=== PATIENT | female | born 1950 | race Caucasian/White ===

== ENCOUNTER → 2023-11-19 10:28 | Outpatient (CLI) | payer MEDICARE, OTHER, SELFPAY ==
--- NOTE | 2023-11-19 10:32 | DI.RAD.S_ITS ---
PROCEDURE: XR FOOT LT MIN 3V INDICATIONS: WEIGHT BEARING TECHNIQUE: 3 views of the foot were acquired. COMPARISON: [facility], , FOOT 3V LEFT, 01/29/2012, 14:07. FINDINGS: Bones: No acute fractures or dislocations. Old healed 5th metatarsal shaft fracture. Normal alignment with weight-bearing. No suspicious bony lesions. Moderate osteoarthritic changes, most pronounced at the 2nd, 3rd, 4th and 5th tarsometatarsal joints and multiple distal interphalangeal joints. Plantar and posterior calcaneal spurring. Soft tissues: No tibiotalar joint effusion. Achilles tendon appears normal. IMPRESSION: 1. Moderate osteoarthritic changes. 2. Calcaneal spurring. 3. Old 5th metatarsal shaft fracture. Dictated by: Kylee Ahumada M.D. on 11/20/2023 at 10:09 Approved by: Kylee Ahumada M.D. on 11/20/2023 at 10:14
== END ==
PROVIDERS: Family Provider Family Medicine; PCP Family Medicine; Referring Provider Podiatrist; Visit Provider Podiatrist
DX: M79.672 Pain in left foot (principal); M77.32 Calcaneal spur, left foot
CPT/HCPCS: 73630

== ENCOUNTER → 2025-07-29 11:31 | Outpatient (CLI) | payer MEDICARE, OTHER, SELFPAY ==
--- NOTE | 2025-07-29 11:34 | DI.RAD.S_ITS ---
PROCEDURE: XR KNEE LT 3V INDICATIONS: L KNEE PAIN TECHNIQUE: 3 views of the knee were acquired. COMPARISON: None. FINDINGS: Bones: No fractures or dislocations. Moderate osteoarthritic changes, most pronounced within the medial compartment with joint space narrowing and osteophytosis. No suspicious bony lesions. Soft tissues: Small joint effusion. No suspicious soft tissue calcifications. IMPRESSION: Moderate osteoarthritic changes, most pronounced within the medial compartment. Dictated by: Mehrdad Maurice M.D. on 07/30/2025 at 14:21 Approved by: Mehrdad Maurice M.D. on 07/30/2025 at 14:23
== END ==
PROVIDERS: Family Provider Family Medicine; PCP Family Medicine; Referring Provider Family Medicine; Visit Provider Family Medicine
DX: M25.562 Pain in left knee (principal); M25.462 Effusion, left knee
CPT/HCPCS: 73562